=== PATIENT | female | born 1990 | race Caucasian/White ===

== ENCOUNTER 2021-03-21 09:04 | Inpatient (IN) ==
[2021-03-21] MEDS ORDERED: BENADRYL INJ 50 MG VIAL IVP PRN ×2 (09:09→11:21)
[2021-03-21] MEDS ORDERED: ZOFRAN INJ 4 MG VIAL IVP PRN ×2 (09:09→12:22)
[2021-03-21] MEDS ORDERED: TORADOL 30 MG VIAL IVP PRN ×2 (09:09→12:22)
[2021-03-21] MEDS ORDERED: LR 1000 ML IV 1,000 ML IV ONE ×2 (09:10→09:15)
[2021-03-21] MEDS ORDERED: ANCEF 1 GRAM IV PREMIX* 2 G/100 ML BAG IV ONE (09:10)
[2021-03-21] MEDS ORDERED: XYLOCAINE 1 % (PLAIN) ONE (09:15)
[2021-03-21] MEDS ORDERED: D5 1/2 NS 1L W PITOCIN 20 UNITS/L 20 UNITS/1,000 ML BAG IV ONE (09:15)
[2021-03-21] MEDS ORDERED: DROPERIDOL ONE (09:18)
[2021-03-21] MEDS ORDERED: DILAUDID INJ ONE (09:36)
[2021-03-21] MEDS ORDERED: DIPRIVAN VIAL ONE (09:51)
[2021-03-21] MEDS ORDERED: REGLAN INJ 10 MG VIAL ONE (09:51)
[2021-03-21] MEDS ORDERED: PITOCIN ONE (09:51)
[2021-03-21] MEDS ORDERED: MARCAINE SPINAL ONE (09:51)
[2021-03-21] MEDS ORDERED: EPHEDRINE SULFATE INJ ONE (09:51)
[2021-03-21] MEDS ORDERED: D5 1/2 NS 1000 ML 1,000 ML IV SCH (10:00)
[2021-03-21 10:07] LABS: AMNISURE ROM TEST NO MEMBRANES RUPTURE (NO RUPTURE)
[2021-03-21] MEDS ORDERED: BARHEMSYS INJ IVP PRN (11:21)
[2021-03-21] MEDS ORDERED: PHENERGAN INJ 25 MG IM PRN (11:21)
[2021-03-21] MEDS ORDERED: MYLICON TAB 80 MG CHEW PO PRN (12:22)
[2021-03-21] MEDS ORDERED: ADACEL or BOOSTRIX TDaP VACCINE IM ONE (12:22)
[2021-03-21] MEDS ORDERED: PERCOCET TAB 5/325 MG PO PRN (12:22)
[2021-03-21] MEDS ORDERED: D5 1/2 NS 1000 ML 1,000 ML with PITOCIN 20 UNITS IV SCH ×2 (12:22)
[2021-03-21] MEDS ORDERED: NARCAN INJ IVP PRN (12:22)
[2021-03-21] MEDS: REGLAN INJ 10 MG VIAL IVP PRN ×2 (13:25→20:11)
[2021-03-22 05:00] LABS: HEMATOCRIT 34.4 % (36.0-47.0); HEMOGLOBIN 11.3 g/dL (12.0-16.0)
[2021-03-22] MEDS ORDERED: PERCOCET TAB 5/325 MG PO PRN (07:30)
[2021-03-22] MEDS ORDERED: MOTRIN TAB 800 MG PO PRN (07:30)
[2021-03-22] MEDS ORDERED: ADACEL or BOOSTRIX TDaP VACCINE IM ONE (08:40)
[2021-03-22] MEDS: COLACE CAP 100 MG PO SCH ×2 (08:52→21:05)
[2021-03-22] MEDS: PRENATAL PLUS PO SCH (08:53)
[2021-03-22] MEDS: PROTONIX TAB 40 MG PO SCH (08:53)
[2021-03-22] MEDS: BACTROBAN TOPICAL OINT TOP SCH ×2 (13:43→21:05)
[2021-03-23] MEDS: BACTROBAN TOPICAL OINT TOP SCH (05:40)
[2021-03-23] MEDS: COLACE CAP 100 MG PO SCH (08:24)
[2021-03-23] MEDS: PRENATAL PLUS PO SCH (08:24)
[2021-03-23] MEDS: PROTONIX TAB 40 MG PO SCH (08:25)
[2021-03-23 08:44] VITALS: BP 106/69
== END 2021-03-23 10:50 | disposition home or self-care (01) | DRG 788 ==
LOC: LD 09:04 → MED/SURG 12:06
PROVIDERS: ADMIT Specialist; ATTEND Specialist
DX: O34.211 Maternal care for low transverse scar from previous cesarean delivery; N85.8 Other specified noninflammatory disorders of uterus; Z3A.39 39 weeks gestation of pregnancy; Z37.0 Single live birth; O99.824 Streptococcus B carrier state complicating childbirth; O41.8X20 Other specified disorders of amniotic fluid and membranes, second trimester, not applicable or unspecified; O99.613 Diseases of the digestive system complicating pregnancy, third trimester; B95.1 Streptococcus, group B, as the cause of diseases classified elsewhere; Z23 Encounter for immunization